=== PATIENT | male | born 1950 | race Caucasian/White ===

== ENCOUNTER → 2016-08-02 | Outpatient (CLI) | payer MEDICARE, OTHER ==
[~2016-08-02] MED LIST: ZANTAC150 MG PO
== END ==
LOC: EXRD 10:41
DX: M54.5 Low back pain (principal)
CPT/HCPCS: 72100

== ENCOUNTER → 2016-09-15 | Outpatient (CLI) | payer MEDICARE, OTHER | LOC: KOH-I 13:41 | DX: M25.511 Pain in right shoulder (principal) | CPT/HCPCS: 73030 ==

== ENCOUNTER → 2016-09-26 | Outpatient (CLI) | payer MEDICARE, OTHER | LOC: KOH-I 12:28 | DX: J44.1 Chronic obstructive pulmonary disease with (acute) exacerbation (principal); R91.8 Other nonspecific abnormal finding of lung field | CPT/HCPCS: 71020 ==

== ENCOUNTER → 2016-10-07 | Outpatient (CLI) | payer MEDICARE, OTHER | LOC: KOH-I 09:28 | DX: R93.8 Abnormal findings on diagnostic imaging of other specified body structures (principal); M25.50 Pain in unspecified joint; G89.29 Other chronic pain; J44.9 Chronic obstructive pulmonary disease, unspecified; R05 Cough; R91.8 Other nonspecific abnormal finding of lung field | CPT/HCPCS: 71270; Q9962 ==

== ENCOUNTER → 2016-10-10 | Outpatient (CLI) | payer MEDICARE, OTHER | LOC: HEART 5 10:31 | DX: R00.2 Palpitations (principal) ==

== ENCOUNTER → 2020-06-15 | Day surgery (SDC) | payer MEDICARE, OTHER ==
[~2020-06-15] MED LIST changes: +ACETAMINOPHEN500 MG PO; +AMMONIUM LACTA140 GM TP; +ASPIR 8181 MG PO; +CATAPRES 0.1MG0.1 MG PO; +CYMBALTA 30 MG30 MG PO; +DULERA 100 MCG8.8 GM INH; +FLOMAX 0.4 MG0.4 MG PO; +FLONASE ALLER15.8 ML; +FOLIC ACID1 MG PO; +HYDROCODON-ACE1 EAC2 PO; +HYDROCODON-ACE1 EAC4 PO; +IPRATROPIUM; +KENALOG OINT 0.15 GM TOP; +LASIX 40 MG TAB40 MG PO; +LIPITOR TAB 1010 MG PO; +LISINOPRIL20 MG PO; +LISINOPRIL5 MG PO; +LOPRESSOR 25 MG25 MG PO; +MAGNESIUM400 M2 PO; +MELOXICAM15 MG PO; +MUCINEX1200 MG PO; +NITROSTAT 0.40.4 MG SL; +NITROSTAT0.4 MG SL; +OMNICEF 300 MG300 MG PO; +PHENERGAN 25 MG25 M1 PO; +PLAQUENIL 200200 MG PO; +PLAVIX 75 MG TA75 MG PO; +POLYETHYLENE GLYCOL PO; +POTASSIUM CHLO20 ME1 PO; +PREDNISONE 10 M10 MG PO; +PROAIR HFA8.5 GM INH; +SYNTHROID 50 M50 MCG PO; +VITAMIN B12 PO; +VITAMIN D350000 UNIT PO; +ZOFRAN ODT 4 MG4 MG PO; +ZYRTEC10 M3 PO
== END | disposition home or self-care (01) ==
LOC: OR 06:05
PROVIDERS: Surgery
PROC: 0DBG8ZX Excision of Left Large Intestine, Via Natural or Artificial Opening Endoscopic, Diagnostic (ICD-10-PCS; principal; 2020-06-15 07:30)
DX: Z12.11 Encounter for screening for malignant neoplasm of colon (principal); D12.4 Benign neoplasm of descending colon; K64.0 First degree hemorrhoids; K57.30 Diverticulosis of large intestine without perforation or abscess without bleeding; M19.90 Unspecified osteoarthritis, unspecified site; N40.1 Benign prostatic hyperplasia with lower urinary tract symptoms; G89.29 Other chronic pain; M54.9 Dorsalgia, unspecified; I12.9 Hypertensive chronic kidney disease with stage 1 through stage 4 chronic kidney disease, or unspecified chronic kidney disease; E11.22 Type 2 diabetes mellitus with diabetic chronic kidney disease; N18.30 Chronic kidney disease, stage 3 unspecified; F17.210 Nicotine dependence, cigarettes, uncomplicated; I25.10 Atherosclerotic heart disease of native coronary artery without angina pectoris; E11.51 Type 2 diabetes mellitus with diabetic peripheral angiopathy without gangrene; I49.9 Cardiac arrhythmia, unspecified; J43.9 Emphysema, unspecified; E78.5 Hyperlipidemia, unspecified; Z88.5 Allergy status to narcotic agent; Z88.8 Allergy status to other drugs, medicaments and biological substances; Z79.82 Long term (current) use of aspirin; Z79.1 Long term (current) use of non-steroidal anti-inflammatories (NSAID); Z79.02 Long term (current) use of antithrombotics/antiplatelets; Z79.899 Other long term (current) drug therapy; Z79.84 Long term (current) use of oral hypoglycemic drugs; Z90.49 Acquired absence of other specified parts of digestive tract; Z86.010 Personal history of colon polyps
CPT/HCPCS: 82962; J2704; J7120

== ENCOUNTER → 2020-07-14 | Outpatient (CLI) | payer MEDICARE, OTHER | LOC: EXRD 13:22 | DX: N13.2 Hydronephrosis with renal and ureteral calculous obstruction (principal); R10.9 Unspecified abdominal pain | CPT/HCPCS: 74018 ==

== ENCOUNTER → 2020-08-05 | Outpatient (CLI) | payer MEDICARE, OTHER | LOC: KOH-I 13:28 | DX: R10.9 Unspecified abdominal pain (principal); N13.2 Hydronephrosis with renal and ureteral calculous obstruction; N28.9 Disorder of kidney and ureter, unspecified; N32.89 Other specified disorders of bladder; R93.5 Abnormal findings on diagnostic imaging of other abdominal regions, including retroperitoneum | CPT/HCPCS: 74176 ==

== ENCOUNTER → 2020-08-21 | Outpatient (CLI) | payer MEDICARE, OTHER ==
[2020-08-21 09:48] LABS: RED BLOOD COUNT 4.48 M/UL (4.20-5.50); WHITE BLOOD COUNT 17.5 K/UL (4.5-11.0)
[2020-08-21 10:12] LABS: BUN/CREATININE RATIO 17 (0-10)
== END ==
LOC: CT 09:23
PROVIDERS: Internal Medicine Hematology & Oncology
DX: C34.11 Malignant neoplasm of upper lobe, right bronchus or lung (principal); R91.8 Other nonspecific abnormal finding of lung field; Z98.890 Other specified postprocedural states
CPT/HCPCS: 36415; 71260; 80053; 85027; Q9963

== ENCOUNTER → 2020-09-21 | Outpatient (CLI) | payer MEDICARE, OTHER | LOC: EXRD 11:30 | DX: N18.9 Chronic kidney disease, unspecified (principal) | CPT/HCPCS: 76775 ==

== ENCOUNTER → 2020-10-06 | Outpatient (CLI) | payer MEDICARE, OTHER | LOC: EXRD 10:19 | DX: M47.22 Other spondylosis with radiculopathy, cervical region (principal); M47.26 Other spondylosis with radiculopathy, lumbar region; M54.9 Dorsalgia, unspecified; M43.8X4 Other specified deforming dorsopathies, thoracic region; S22.31XD Fracture of one rib, right side, subsequent encounter for fracture with routine healing; J98.4 Other disorders of lung; Z98.890 Other specified postprocedural states; X58.XXXD Exposure to other specified factors, subsequent encounter | CPT/HCPCS: 72040; 72070; 72100 ==

== ENCOUNTER → 2021-02-09 | Outpatient (CLI) | payer MEDICARE, OTHER | LOC: KOH-I 02-01 13:30 | DX: F17.210 Nicotine dependence, cigarettes, uncomplicated (principal); Z98.890 Other specified postprocedural states | CPT/HCPCS: 71271 ==

== ENCOUNTER → 2021-03-22 | Outpatient (CLI) | payer MEDICARE, OTHER ==
[2021-03-22 10:10] LABS: RED BLOOD COUNT 4.53 M/UL (4.20-5.50); WHITE BLOOD COUNT 13.2 K/UL (4.5-11.0)
== END ==
LOC: CT 09:00
PROVIDERS: Internal Medicine Hematology & Oncology
DX: C34.11 Malignant neoplasm of upper lobe, right bronchus or lung (principal); R05.9 Cough, unspecified; R91.1 Solitary pulmonary nodule
CPT/HCPCS: 36415; 71046; 71260; 80053; 85025; Q9965

== ENCOUNTER → 2021-07-27 | Outpatient (CLI) | payer MEDICARE, OTHER | LOC: CT 09:59 | DX: R91.8 Other nonspecific abnormal finding of lung field (principal); Z85.118 Personal history of other malignant neoplasm of bronchus and lung; Z90.2 Acquired absence of lung [part of] | CPT/HCPCS: 36415; 71260; 82565; 84520; Q9967 ==

== ENCOUNTER → 2021-09-09 | Outpatient (CLI) | payer MEDICARE, OTHER | LOC: RAD 13:15 | DX: R53.1 Weakness (principal); R55 Syncope and collapse | CPT/HCPCS: 71046 ==

== ENCOUNTER → 2021-09-10 | Outpatient (CLI) | payer MEDICARE, OTHER | LOC: CT 14:30 | DX: R79.89 Other specified abnormal findings of blood chemistry (principal); R06.02 Shortness of breath; R55 Syncope and collapse; R91.8 Other nonspecific abnormal finding of lung field; J94.8 Other specified pleural conditions | CPT/HCPCS: Q9967 ==

== ENCOUNTER → 2021-12-31 | Outpatient (CLI) | payer MEDICARE, OTHER | LOC: RAD 11-25 09:30 | DX: R13.10 Dysphagia, unspecified (principal); K22.89 Other specified disease of esophagus | CPT/HCPCS: 74221 ==